=== PATIENT | male | born 1995 | race Caucasian/White ===

== ENCOUNTER 2022-07-05 13:59 | Emergency (ER) | payer BC ==
[~2022-07-05] VITALS: Ht 172.7 cm; Wt 81.0 kg
[2022-07-05 14:09] VITALS: BP 140/87
== END 2022-07-05 17:53 | disposition home or self-care (01) ==
LOC: ER 14:26
DX: S09.8XXA Other specified injuries of head, initial encounter (principal); S16.1XXA Strain of muscle, fascia and tendon at neck level, initial encounter; I49.8 Other specified cardiac arrhythmias; V89.2XXA Person injured in unspecified motor-vehicle accident, traffic, initial encounter; Y93.89 Activity, other specified; Y92.89 Other specified places as the place of occurrence of the external cause; Z88.6 Allergy status to analgesic agent
CPT/HCPCS: 71046; 93005; 99285